=== PATIENT | male | born 1955 | race Caucasian/White ===

== ENCOUNTER → 2021-12-06 | Outpatient (CLI) | payer BC, MEDICARE | LOC: M RAD 11:33 | PROVIDERS: ATTEND Nurse Practitioner Adult Health | DX: M79.604 Pain in right leg (principal) ==

== ENCOUNTER → 2022-06-07 | Outpatient (CLI) | payer MEDICARE | LOC: M WUC 10:42 | PROVIDERS: ATTEND Internal Medicine | DX: R05.9 Cough, unspecified (principal); I51.7 Cardiomegaly ==

== ENCOUNTER → 2023-03-07 | Outpatient (CLI) | payer MEDICARE | LOC: M CARPUL 09:33 | PROVIDERS: ATTEND Nurse Practitioner Adult Health | DX: R06.02 Shortness of breath (principal) ==

== ENCOUNTER → 2023-07-25 | Outpatient (CLI) | payer MEDICARE | LOC: M WUC 11:38 | PROVIDERS: ATTEND Nurse Practitioner Adult Health | DX: R06.02 Shortness of breath (principal) ==

== ENCOUNTER 2024-07-07 09:44 | Day surgery (SDC) | payer MEDICARE ==
[~2024-07-07] VITALS: Ht 177.8 cm; Wt 113.3 kg
[~2024-07-07 09:44] MED LIST: BAYE81TA10 PO; FURO20TA2 PO; LEVO175T2 PO; NS 250 ML IV ONE; OMEP40CA5 PO; ROSU20TA86 PO; TAMS1CAP17 PO; TREL1AER INH
[2024-07-07 13:15] VITALS: BP 160/78; TEMP 97; O2SAT 96
== END 2024-07-07 13:26 | disposition home or self-care (01) ==
LOC: M OPP 09:44
PROVIDERS: ATTEND Internal Medicine Gastroenterology
DX: Z12.11 Encounter for screening for malignant neoplasm of colon (principal); D12.4 Benign neoplasm of descending colon; K57.30 Diverticulosis of large intestine without perforation or abscess without bleeding; K64.8 Other hemorrhoids; R12 Heartburn; K52.9 Noninfective gastroenteritis and colitis, unspecified

== ENCOUNTER → 2024-11-04 | Outpatient (CLI) | payer MEDICARE ==
[~2024-11-04] MED LIST changes: +E-Z-GAS II EFFERVESCENT PACKET (SODIUM BICARB./CITRIC ACID/SIMETHICONE) As Ordered ONE; +E-Z-HD 98% w/w 340GM SUSP BTL As Ordered ONE; +E-Z-PAQUE 96% w/w SUSP 176GM BTL As Ordered ONE; -NS 250 ML IV ONE
== END ==
LOC: M RAD 07:53
PROVIDERS: ATTEND Nurse Practitioner Adult Health
DX: R13.10 Dysphagia, unspecified (principal)